=== PATIENT | female | born 1965 | race Caucasian/White ===

== ENCOUNTER 2017-04-07 14:04 | Emergency (ER) | payer MEDICAID ==
[~2017-04-07] VITALS: Ht 165.1 cm; Wt 73.5 kg
[~2017-04-07 14:04] MED LIST: ACET500C5 PO; CYCL-319 PO
[2017-04-07 14:08] VITALS: Ht 165.1 cm; Wt 73.5 kg
[2017-04-07] MEDS ORDERED: SOD CHLORIDE 0.9% 1,000 ML IV STA (14:55)
[2017-04-07 15:32] LABS: BASOPHILS % 0.2 % (0.0-2.0); EOSINOPHILS # 0.1 10^3/ul (0.0-0.5); HEMATOCRIT 43.6 % (37.0-47.0); HEMOGLOBIN 14.9 g/dl (12.0-16.0); LYMPHOCYTES # 3.9 10^3/ul (0.8-2.9); LYMPHOCYTES % 47.3 % (15.0-51.0); MEAN CORPUSCULAR HEMOGLOBIN 29.9 pg (29.0-33.0); MEAN CORPUSCULAR HGB CONC 34.2 g/dl (32.0-37.0); MEAN CORPUSCULAR VOLUME 87.6 fl (82.0-101.0); MEAN PLATELET VOLUME 10.9 fl (7.4-10.4); MONOCYTE # 0.5 10^3/ul (0.3-0.9); MONOCYTES % 5.5 % (0.0-11.0); NEUTROPHIL # 3.8 10^3/ul (1.6-7.5); NEUTROPHILS % 45.8 % (39.0-77.0); PLATELET COUNT 263 10^3/UL (140-415); RED BLOOD COUNT 4.98 10^6/ul (4.20-5.40); RED CELL DISTRIBUTION WIDTH 12.1 % (11.5-14.5); WHITE BLOOD COUNT 8.3 10^3/ul (4.8-10.8)
[2017-04-07 15:36] LABS: CALCIUM 9.6 mg/dl (8.4-10.2); CREATININE 0.52 mg/dl (0.44-1.00)
[2017-04-07 15:44] LABS: ADD UMIC YES; UR ASCORBIC ACID 40 mg/dL (NEGATIVE); UR BACTERIA FEW /HPF (NONE SEEN); UR BILIRUBIN (Dip) NEGATIVE (NEGATIVE); UR BLOOD (Dip) NEGATIVE (NEGATIVE); UR CLARITY CLOUDY (CLEAR); UR COLOR YELLOW (YELLOW); UR GLUCOSE (Dip) 3+ mg/dL (NEGATIVE); UR KETONES (Dip) TRACE mg/dL (NEGATIVE); UR LEUKOCYTE ESTERASE (Dip) 3+ Leu/ul (NEGATIVE); UR MUCUS FEW /HPF (NONE SEEN); UR NITRITE (Dip) NEGATIVE (NEGATIVE); UR RBC 9 /HPF (0-5); UR SPECIFIC GRAVITY (Dip) 1.023 (1.003-1.030); UR SQUAMOUS EPITHELIAL CELL MODERATE /HPF (FEW); UR TOTAL PROTEIN (Dip) NEGATIVE (NEGATIVE); UR UROBILINOGEN (Dip) 1+ mg/dL (NEGATIVE)
[2017-04-07] MEDS ORDERED: CEFTRIAXONE 1 GM/50 ML (PMX) 50 ML IVPB ONE (17:00)
[2017-04-07] MEDS ORDERED: CIPR500T4 PO (18:54)
[2017-04-07] MEDS ORDERED: NITR-58 PO (18:54)
[2017-04-07 19:08] VITALS: BP 135/86; PULSE 72; RESP 18; TEMP 98.3
--- NOTE | 2017-04-07 19:08 | ERD ---
ER Documentation Chief Complaint Date/Time DATE: 04/07/17 TIME: 18:58 Chief Complaint Patient states she thinks her bloog sugar is high HPI 4-year-old female comes in for having high blood sugars. She is on her normal regimen including insulin. She has been eating normally. However her sugars been higher. She is also been urinating more than usual. Denies any pain, fevers or chills. ROS All systems reviewed and are negative except as per history of present illness. Medications Home Meds Active Scripts Nitrofurantoin Monohyd Macrocr* (Macrobid*) 100 Mg Capsr, 100 MG PO BID for 5 Days, CAP Prov:ERIKATAURUS DO 04/07/17 Ciprofloxacin Hcl* (Ciprofloxacin Hcl*) 500 Mg Tablet, 500 MG PO BID for 5 Days , TAB Prov:ERIKATAURUS DO 04/07/17 Cyclobenzaprine Hcl* (Cyclobenzaprine Hcl*) 10 Mg Tablet, 10 MG PO TID, #15 TAB Prov:RYANN PADILLA PA-C 05/16/16 Acetaminophen* (Tylophen*) 500 Mg Capsule, 1 CAP PO Q6H Y for PAIN AND OR ELEVATED TEMP, #30 CAP Prov:RYANN PADILLA PA-C 05/16/16 Allergies Allergies: Coded Allergies: No Known Allergy (Unverified , 04/07/17) PMhx/Soc History of Surgery: No Anesthesia Reaction: No Hx Neurological Disorder: No Hx Respiratory Disorders: No Hx Cardiac Disorders: No Hx Psychiatric Problems: No Hx Miscellaneous Medical Probl: Yes (DM) Hx Alcohol Use: No Hx Substance Use: No Hx Tobacco Use: No Smoking Status: Never smoker Physical Exam Vitals Vital Signs Date Time Temp Pulse Resp B/P Pulse Ox O2 Delivery O2 Flow Rate FiO2 04/07/17 18:21 68 20 110/61 100 04/07/17 16:22 70 20 104/61 100 04/07/17 15:13 74 20 109/79 100 04/07/17 14:08 98.6 74 20 129/68 100 Physical Exam Const: [] No distress Eyes: Normal Conjunctiva ENT: Normal External Ears, Nose and Mouth. Abd: Soft, non tender, non distended. Normal bowel sounds Skin: No petechiae or rashes Back: No midline or flank tenderness Ext: No cyanosis, or edema Neur: Awake and alert Result Diagram: 04/07/17 1445 04/07/17 1445 Results 24 hrs Laboratory Tests Test 04/07/17 14:45 04/07/17 14:50 04/07/17 15:10 White Blood Count 8.310^3/ul Red Blood Count 4.9810^6/ul Hemoglobin 14.9g/dl Hematocrit 43.6% Mean Corpuscular Volume 87.6fl Mean Corpuscular Hemoglobin 29.9pg Mean Corpuscular Hemoglobin Concent 34.2g/dl Red Cell Distribution Width 12.1% Platelet Count 84721^3/UL Mean Platelet Volume 10.9fl Neutrophils % 45.8% Lymphocytes % 47.3% Monocytes % 5.5% Eosinophils % 1.0% Basophils % 0.2% Nucleated Red Blood Cells % 0.0/100WBC Neutrophils # 3.810^3/ul Lymphocytes # 3.910^3/ul Monocytes # 0.510^3/ul Eosinophils # 0.110^3/ul Basophils # 0.010^3/ul Nucleated Red Blood Cells # 0.010^3/ul Sodium Level 136mmol/L Potassium Level 4.0mmol/L Chloride Level 98mmol/L Carbon Dioxide Level 27mmol/L Anion Gap 15 Blood Urea Nitrogen 16mg/dl Creatinine 0.52mg/dl Glucose Level 253mg/dl Calcium Level 9.6mg/dl Bedside Glucose 246mg/dL Urine Color YELLOW Urine Clarity CLOUDY Urine pH 5.0 Urine Specific [place] 1.023 Urine Ketones TRACEmg/dL Urine Nitrite NEGATIVEmg/dL Urine Bilirubin NEGATIVEmg/dL Urine Urobilinogen 1+mg/dL Urine Leukocyte Esterase 3+Reta/ul Urine Microscopic RBC 9/HPF Urine Microscopic WBC 27/HPF Urine Squamous Epithelial Cells MODERATE/HPF Urine Bacteria FEW/HPF Urine Mucus FEW/HPF Urine Hemoglobin NEGATIVEmg/dL Urine Glucose 3+mg/dL Urine Total Protein NEGATIVEmg/dl Current Medications Medications (Trade) Dose Ordered Sig/Lashae Route PRN Reason Start Time Stop Time Status Last Admin Dose Admin Sodium Chloride 1,000 ml @ 1,000 mls/hr Q1H STAT IV 04/07/17 14:55 04/07/17 15:54 DC 04/07/17 15:12 Ceftriaxone Sodium (Rocephin) 50 ml @ 100 mls/hr ONCE ONCE IVPB 04/07/17 17:00 04/07/17 17:29 DC 04/07/17 16:58 Procedures/MDM This 52-year-old diabetic female likely has higher blood sugars on her normal regimen because of her urinary tract infection. She was given a liter normal saline which decreased her sugar. No signs of sepsis or systemic infection. I am going to discharge her with Cipro and Macrobid as well as primary care follow -up patient also given a gram of Rocephin to start treatment of this infection causing her sugars to go high. Primary care follow-up in 2 3 days and return precautions. Departure Diagnosis: Primary Impression: UTI (urinary tract infection) Additional Impression: Hyperglycemia Condition: Stable Patient Instructions: Hyperglycemia (High Blood Sugar), Understanding Urinary Tract Infections (UTIs) Additional Instructions: Llame al doctor MAANA y nolberto oma PERFECTO PARA DENTRO DE 2-3 ZAVALA.Dgale a la secretaria que nosotros le instruimos hacer esta perfecto.Avise o llame si rodriguez condicin se empeora antes de la perfecto. Regresa aqui si peor o no mejor. TAURUS JAMES DO Apr 07, 2017 19:08
== END 2017-04-07 19:11 | disposition home or self-care (01) ==
LOC: E/R 14:04
DX: N39.0 Urinary tract infection, site not specified (principal)
CPT/HCPCS: 36415; 80048; 81001; 82962; 85025; 96374; J0696; J7030; Z7502

== ENCOUNTER 2018-02-25 23:02 | Emergency (ER) | END 2018-02-26 01:32 | disposition home or self-care (01) ==